=== PATIENT | female | born 1985 | race Two or more races ===

== ENCOUNTER → 2021-03-26 15:06 | Outpatient (BNVA) | payer MEDICAID, SELFPAY | PROVIDERS: Visit Provider Physician Assistant | DX: E66.01 Morbid (severe) obesity due to excess calories (principal); Z68.43 Body mass index [BMI] 50.0-59.9, adult | CPT/HCPCS: 99212 ==

== ENCOUNTER → 2021-04-07 16:30 | Outpatient (BNVA) | payer MEDICAID, SELFPAY | PROVIDERS: Visit Provider Physician Assistant | DX: E66.01 Morbid (severe) obesity due to excess calories (principal); R06.02 Shortness of breath; Z68.43 Body mass index [BMI] 50.0-59.9, adult | CPT/HCPCS: 99212 ==

== ENCOUNTER → 2021-04-29 08:14 | Outpatient (BNVA) | payer MEDICAID, SELFPAY | PROVIDERS: Visit Provider Dietitian, Registered | DX: E66.01 Morbid (severe) obesity due to excess calories (principal) | CPT/HCPCS: 97802 ==

== ENCOUNTER → 2021-06-10 16:38 | Outpatient (BNVA) | payer MEDICAID, SELFPAY | PROVIDERS: Visit Provider Physician Assistant | DX: E66.01 Morbid (severe) obesity due to excess calories (principal); Z68.43 Body mass index [BMI] 50.0-59.9, adult | CPT/HCPCS: 99212 ==

== ENCOUNTER → 2022-01-01 10:56 | Outpatient (BNVA) | payer MEDICAID, SELFPAY | PROVIDERS: Referring Provider Physician Assistant; Visit Provider Physician Assistant Surgical | DX: E66.01 Morbid (severe) obesity due to excess calories (principal); Z68.43 Body mass index [BMI] 50.0-59.9, adult | CPT/HCPCS: 99212 ==

== ENCOUNTER → 2022-02-03 10:53 | Outpatient (BNVA) | payer MEDICAID, SELFPAY | PROVIDERS: Visit Provider Physician Assistant Surgical | DX: E66.01 Morbid (severe) obesity due to excess calories (principal) ==